=== PATIENT | male | born 2005 | race Hispanic/Latino ===

== ENCOUNTER 2025-01-19 21:41 | Emergency (ER) | payer OTHER ==
[2025-01-19 22:26] LABS: #Basophils Less than 0.03 10x3/uL (0.0-0.2); #Eosinophils 0.19 10x3/uL (0.0-0.5); #Monocytes 0.65 10x3/uL (0.0-1.1); #Neutrophils 7.42 10x3/uL (1.5-8.4); %Basophils 0.1 % (0.0-2.0); %Eosinophils 1.9 % (0.0-6.0); %Lymphocytes 15.7 % (18.0-47.0); %Monocytes 6.6 % (0.0-10.0); %Neutrophils 75.5 % (40.0-75.0); Hematocrit 41.2 % (38.8-50.0); Hemoglobin 14.6 g/dL (13.5-17.5); Mean Corpuscular Hemoglobin 29.9 pg (27.0-33.0); Mean Corpuscular Volume 84.4 fL (81.2-95.1); Platelet Count 227 10x3/uL (150-450); Red Blood Cell (RBC) Count 4.88 10x6/uL (4.32-5.72); White Blood Cell (WBC) Count 9.83 10x3/uL (3.5-10.5)
[2025-01-19 22:53] LABS: Acetaminophen Less than 10 mcg/mL (Less than 10); Lipase 62 U/L (8-78); Salicylate Less than 8.0 mg/dL (Less than 8.0)
[2025-01-19 22:54] LABS: ALT (SGPT) 13 U/L (Less than 45); AST (SGOT) 15 U/L (11-34); Albumin 4.1 g/dL (3.1-4.5); Alkaline Phosphatase 63 U/L (50-130); Anion Gap 14 mmol/L (10-20); BUN (Urea Nitrogen) 16 mg/dL (8.9-20.6); Bilirubin, Total 0.3 mg/dL (0.3-1.2); CK (CPK) 212 U/L (30-200); Calc. Creatinine Clearance 0 mL/min (70-130); Calcium 9.6 mg/dL (7.8-10.44); Carbon Dioxide 23 mmol/L (22-29); Chloride 108 mmol/L (98-107); Globulin 2.4 g/dL (2.4-3.5); Glucose 120 mg/dL (70-105); Potassium 4.0 mmol/L (3.5-5.1); Sodium 141 mmol/L (136-145)
[2025-01-19 23:38] LABS: Glucose, Urine (Dipstick) Normal (Negative); Leukocyte Negative (Negative); Protein, Urine (Dipstick) Negative (Neg-Trace); Specific Gravity, Urine 1.020 (1.005-1.030)
[2025-01-19 23:47] LABS: Cocaine Metabolite Screen Negative (Negative); THC/Cannabinoid Screen Negative (Negative); Tricyclic Screen Negative (Negative)
[2025-01-19 23:51] LABS: Bacteria/HPF None Seen HPF (None Seen); CAUTI Indications for Culture Pelvic or flank pain; RBC/HPF None Seen HPF (0-3); WBC/HPF None Seen HPF (0-3)
[2025-01-19 23:52] LABS: Urine Culture Reflex No No
== END 2025-01-20 02:00 | disposition home or self-care (01) ==
LOC: CSHERS 21:41
DX: F84.0 Autistic disorder (principal)
CPT/HCPCS: 72100; 80053; 80306; 80307; 81001; 82550; 83690; 85025; 93005; 96372; J1630; J2060